=== PATIENT | female | born 1935 | race Caucasian/White ===

== ENCOUNTER 2017-06-20 15:18 | Emergency (ER) | payer OTHER, MEDICARE ==
--- NOTE | 2017-06-20 15:39 | PDOC ---
History of Present Illness - General History Source: Patient, Old Records Exam Limitations: No Limitations - History of Present Illness Initial Comments: 06/20/17 15:53 The patient is an 81 year old female accompanied by family, with a past medical history of CHF and pacemaker who presents to the emergency department today with back pain and belching for one day. The patient states that about 2 weeks ago she fell and landed on the right side of her body. Today, the patient states that her pain is mostly in her left middle back region and is associated with increased belching and some increased flatulence. The patient states that her pain is exacerbated when lying down but not on palpation. She denies fever, cough, vomiting, sweating, abdominal pain, epigastric pain. She reports mild weight loss. <Robert Perez - Last Filed: 06/20/17 20:50> <Tobi Torres - Last Filed: 06/21/17 01:49> <Mary Browning - Last Filed: 06/22/17 08:45> - General Chief Complaint: Back Pain Stated Complaint: BACK PAIN Time Seen by Provider: 06/20/17 15:20 Past History <Robert Perez - Last Filed: 06/20/17 20:50> <Tobi Torres - Last Filed: 06/21/17 01:49> <Mary Browning - Last Filed: 06/22/17 08:45> - Past Medical History Allergies/Adverse Reactions: Allergies Allergy/AdvReac Type Severity Reaction Status Date / Time Sulfa (Sulfonamide Allergy Unknown Verified 06/20/17 15:39 Antibiotics) Home Medications: Ambulatory Orders Atenolol [Tenormin] 25 mg PO HS 06/20/17 Atenolol [Tenormin] 50 mg PO DAILY 06/20/17 Atorvastatin Ca [Lipitor] 10 mg PO HS 06/20/17 Digoxin [Lanoxin -] 0.125 mg PO DAILY 06/20/17 Furosemide [Lasix] 20 mg PO BID 06/20/17 Losartan Potassium [Cozaar -] 50 mg PO HS 06/20/17 Tramadol HCl 50 mg PO TID #12 tablet MDD 150mg 06/20/17 Warfarin Na [Coumadin] 1 mg PO HS 06/20/17 Review of Systems - Review of Systems Able to Perform ROS?: Yes Comments:: 06/20/17 15:53 GENERAL/CONSTITUTIONAL: No fever or chills. No weakness. GASTROINTESTINAL: (+) Belching, Flatulence. No nausea, vomiting, diarrhea or constipation. GENITOURINARY: No dysuria, frequency, or change in urination. CARDIOVASCULAR: No chest pain or shortness of breath. MUSCULOSKELETAL: (+) Left mid back pain SKIN: No rash NEUROLOGIC: No headache, vertigo, loss of consciousness, or change in strength/ sensation. ENDOCRINE: (+) No increased thirst. Mild weight loss. HEMATOLOGIC/LYMPHATIC: No anemia, easy bleeding, or history of blood clots. <Robert Perez - Last Filed: 06/20/17 20:50> *Physical Exam - Vital Signs Last Vital Signs Temp Pulse Resp BP Pulse Ox 97.7 F 78 16 140/78 97 06/20/17 15:20 06/20/17 19:23 06/20/17 19:23 06/20/17 19:23 06/20/17 19:23 <Tobi Torres - Last Filed: 06/21/17 01:49> - Physical Exam Comments: GENERAL: Awake, alert, and fully oriented, in no acute distress. Intermittent belching. HEAD: No signs of trauma EYES: PERRLA, EOMI, sclera anicteric, conjunctiva clear ENT: Auricles normal inspection, hearing grossly normal, nares patent, oropharynx clear without exudates. Dry mucosa NECK: Normal ROM, supple, no lymphadenopathy, JVD, or masses LUNGS: Breath sounds equal, clear to auscultation bilaterally. No wheezes, and no crackles HEART: Regular rate and rhythm, normal S1 and S2, no murmurs, rubs or gallops ABDOMEN: Soft, nontender, normoactive bowel sounds. No guarding, no rebound. No masses. MSK: Normal range of motion, no edema. No clubbing or cyanosis. No cords, erythema, or tenderness. No CVAT, no rib tenderness. +Patch to L posterior ribs just inferior to the scapula. NEUROLOGICAL: Cranial nerves II through XII grossly intact. Normal speech, normal gait SKIN: Warm, Dry, normal turgor, no rashes or lesions noted. <Mary Browning - Last Filed: 06/22/17 08:45> Heart Score/ECG Review - ECG Impressions Comment:: EKG read 16:45- V-paced at 79 bpm <Mary Browning - Last Filed: 06/22/17 08:45> ED Treatment Course - LABORATORY CBC & Chemistry Diagram: 06/20/17 16:25 06/20/17 16:25 <Robert Perez - Last Filed: 06/20/17 20:50> - LABORATORY CBC & Chemistry Diagram: 06/20/17 16:25 06/20/17 16:25 - ADDITIONAL ORDERS Additional order review: Laboratory Results 06/20/17 06/20/17 06/20/17 16:25 16:25 16:25 Sodium 134 L Potassium 4.1 Chloride 99 Carbon Dioxide 29 H Anion Gap 6 L BUN 19 H Creatinine 1.0 Creat Clearance w eGFR 53.08 Random Glucose 113 H Calcium 8.9 Total Bilirubin 1.3 H AST 27 ALT 27 Alkaline Phosphatase 76 Creatine Kinase 66 Troponin I < 0.03 Total Protein 6.1 L Albumin 3.7 Lipase 687 H Urine Color Urine Appearance Urine pH Ur Specific [place] Urine Protein Urine Glucose (UA) Urine Ketones Urine Blood Urine Nitrite Urine Bilirubin Urine Urobilinogen Ur Leukocyte Esterase 06/20/17 15:50 Sodium Potassium Chloride Carbon Dioxide Anion Gap BUN Creatinine Creat Clearance w eGFR Random Glucose Calcium Total Bilirubin AST ALT Alkaline Phosphatase Creatine Kinase Troponin I Total Protein Albumin Lipase Urine Color Yellow Urine Appearance Clear Urine pH 7.0 Ur Specific [place] 1.010 Urine Protein Negative Urine Glucose (UA) Negative Urine Ketones Negative Urine Blood Negative Urine Nitrite Negative Urine Bilirubin Negative Urine Urobilinogen 0.2 Ur Leukocyte Esterase Negative 06/20/17 16:25 RBC 4.60 MCV 84.9 MCHC 34.3 RDW 17.0 H MPV 8.7 Neutrophils % 69.1 Lymphocytes % 19.5 Monocytes % 8.6 Eosinophils % 2.0 Basophils % 0.8 - Medications Given in the ED: ED Medications Discontinued Medications Generic Name Dose Route Start Last Admin Trade Name Freq PRN Reason Stop Dose Admin Tramadol HCl 50 mg 06/20/17 15:40 06/20/17 15:58 Ultram - PO 06/20/17 15:41 50 mg ONCE ONE Administration <Tobi Torres - Last Filed: 06/21/17 01:49> - LABORATORY CBC & Chemistry Diagram: 06/20/17 16:25 03/11/18 16:25 <Mary Browning - Last Filed: 06/22/17 08:45> Medical Decision Making - Medical Decision Making [address] [place] [address] Phone: [phone] Fax: Email: Web: [email or web address] Patient Information: : 1935 Name: GEETA SNOW Sex: F Study Description: CT ABDOMEN AND PELVIS Modality: CT Location: [facility] Referring Physician: AMOS VASQUEZ Comments: Ramo Ogden MD wrote on Jun 20, 2017 at 08:43 PM: Referring Physician: AMOS VASQUEZ Patient Name: EDY CONNOR THIS IS A PRELIMINARY REPORT FROM [facility] EXAM: CT abdomen and pelvis with contrast IMAGES:442 DATE OF EXAM: 2017-06-20 18:36:28 REASON FOR EXAM: Rule out pancreatic mass COMPARISON: None Findings: Moderate right and small left pleural effusions. Atelectasis and scarring in lung bases. Small hiatal hernia. Cardiomegaly without significant pericardial effusion. Pancreas appears normal without inflammatory changes. No evidence for pancreatic mass. 1.7 cm splenic cyst. CONFIDENTIALITY NOTICE: This information is intended only for the use of the recipient(s) named above. If you are not the intended recipient, or a person responsible for delivering it to the intended recipient, you are hereby notified that any disclosure, copying, distribution or use of any of the information contained in or attached to this transmission is STRICTLY PROHIBITED. If you have received this transmission in error, please immediately notify [facility] and destroy the original transmission and its attachments without saving them in any manner [address] [place] [address] Phone: [phone] Fax: Email: Web: [email or web address] Patient Information: : 1935 Name: GEETA SNOW Sex: F Study Description: CT ABDOMEN AND PELVIS Modality: CT Location: [facility] Referring Physician: AMOS VASQUEZ Heterogeneous hepatic attenuation likely representing asymmetric steatosis. Cannot exclude other liver pathology. Cholecystectomy. Bilateral adrenal nodules measuring up to 1.5 cm on the right and 9 mm on the left. Small right renal cysts. Left renal cortical scarring. No renal or urinary calculi. No AAA. Mild retroperitoneal adenopathy. No evidence for diverticulitis, appendicitis, small bowel obstruction, free pelvic fluid, or free air. *Moderate endometrial thickening with calcifications, potentially from underlying mass. Superimposed calcified uterine fibroids. Grade 1 spondylolisthesis at L3-4. THIS DOCUMENT HAS BEEN ELECTRONICALLY SIGNED Ramo Ogden MD CONFIDENTIALITY NOTICE: This information is intended only for the use of the recipient(s) named above. If you are not the intended recipient, or a person responsible for delivering it to the intended recipient, you are hereby notified that any disclosure, copying, distribution or use of any of the information contained in or attached to this transmission is STRICTLY PROHIBITED. If you have received this transmission in error, please immediately notify [facility] and destroy the original transmission and its attachments without saving them in any manner [address] [place] [address] Phone: [phone] Fax: Email: Web: [email or web address] Patient Information: : 1935 Name: GEETA SNOW Sex: F Study Description: CT ABDOMEN AND PELVIS Modality: CT Location: [facility] Referring Physician: AMOS VASQUEZ 06/20/2017 20:44 EST M.D. Please call [facility] [phone]) with questions. Ramo Ogden MD Clinicians - Please contact [facility] with further questions at [phone]) Patients - Please contact your Ordering Provider with questions. CONFIDENTIALITY NOTICE: This information is intended only for the use of the recipient(s) named above. If you are not the intended recipient, or a person responsible for delivering it to the intended recipient, you are hereby notified that any disclosure, copying, distribution or use of any of the information contained in or attached to this transmission is STRICTLY PROHIBITED. If you have received this transmission in error, please immediately notify [facility] and destroy the original transmission and its attachments without saving them in any manner <Robert Perez - Last Filed: 06/20/17 20:50> - Medical Decision Making mild pancreatitis? tolerating PO in ED without pain CT results d/w pt, who will bring report to PCP analgesia for presumed MSK etiology of LBP 06/21/17 01:49 <Tobi Torres - Last Filed: 06/21/17 01:49> - Medical Decision Making 06/20/17 18:[address] Torres at shift change. Presented with belching, mid back pain. Lipase elevated, but not significantly high. Awaiting CT to further evaluate pancreatitis vs pancreatic mass. <Mary Browning - Last Filed: 06/22/17 08:45> *DC/Admit/Observation/Transfer - Attestations Scribe Attestion: 06/20/17 15:54 Documentation prepared by Robert Perez, acting as medical management trainer for Mary Browning MD. <Robert Perez - Last Filed: 06/20/17 20:50> - Discharge Dispostion Admit: No <Tobi Torres - Last Filed: 06/21/17 01:49> <Mary Browning - Last Filed: 06/22/17 08:45> Diagnosis at time of Disposition: Pancreatitis Qualifiers: Chronicity: acute Pancreatitis type: other Acute pancreatitis complication: unspecified Qualified Code(s): K85.80 - Other acute pancreatitis without necrosis or infection - Discharge Dispostion Disposition: HOME Condition at time of disposition: Good - Prescriptions Prescriptions: Tramadol HCl 50 mg PO TID #12 tablet MDD 150mg - Patient Instructions Printed Discharge Instructions: DI for Pancreatitis
[2017-06-20] MEDS ORDERED: traMADol HCL 50 MG TABLET PO ONE (15:40)
[2017-06-20 15:56] LABS: URINE APPEARANCE Clear; URINE BILIRUBIN Negative (NEGATIVE); URINE BLOOD Negative (NEGATIVE); URINE GLUCOSE (UA) Negative (NEGATIVE); URINE KETONE Negative (NEGATIVE); URINE LEUK ESTERASE Negative (NEGATIVE); URINE NITRITE Negative (NEGATIVE); URINE PROTEIN Negative (NEGATIVE); URINE UROBILINOGEN 0.2 (0.2-1.0)
[2017-06-20] MEDS ORDERED: traMADol HCL 50 MG TABLET ONE (15:56)
[2017-06-20 15:57] LABS: URINE COLOR YELLOW
[2017-06-20 15:59] VITALS: TEMP 97.7; BMI 20.2
[2017-06-20 16:36] LABS: BASO % 0.8 % (0-2.0); HEMATOCRIT 39.1 % (32.4-45.2); HEMOGLOBIN 13.4 GM/dl (10.7-15.3); LYMPH % 19.5 % (8-40); MCH 29.1 pg (25.7-33.7); MCHC 34.3 g/dl (32.0-36.0); MEAN CELL VOLUME 84.9 fl (80-96); MEAN PLT VOLUME 8.7 fl (7.5-11.1); MONO % 8.6 % (3.8-10.2); NEUT % 69.1 % (42.8-82.8); PLATELET COUNT 182 K/MM3 (134-434); WHITE BLOOD COUNT 8.9 K/mm3 (4.0-10.8)
[2017-06-20 17:07] LABS: ALBUMIN 3.7 g/dl (3.5-5.0); ALK PHOS 76 U/L (32-92); ANION GAP 6 (8-16); BILIRUBIN,TOTAL 1.3 mg/dl (0.2-1.0); BLOOD UREA NITROGEN 19 mg/dl (7-18); CALCIUM 8.9 mg/dl (8.4-10.2); CHLORIDE 99 mmol/L (98-107); CO2 29 mmol/L (22-28); GLUCOSE,RANDOM 113 mg/dl (74-106); POTASSIUM 4.1 mmol/L (3.5-5.1); SGOT/AST 27 U/L (10-42); SGPT/ALT 27 U/L (10-40); SODIUM 134 mmol/L (136-145); TOT PROT 6.1 g/dl (6.4-8.3)
[2017-06-20 17:22] LABS: LIPASE 687 U/L (73-393)
[2017-06-20 19:26] VITALS: BP 140/78; PULSE 78
--- NOTE | 2017-06-21 15:43 | EKG ---
Test Reason : Blood Pressure : / mmHG Vent. Rate : 079 BPM Atrial Rate : 078 BPM P-R Int : 000 ms QRS Dur : 164 ms QT Int : 442 ms P-R-T Axes : 000 -77 100 degrees QTc Int : 506 ms Ventricular-paced rhythm ABNORMAL ECG NO PREVIOUS ECGS AVAILABLE Confirmed by KRISTAL GARCIA MD ([id number]) on 06/21/2017 3:43:18 PM Referred By: Azul TRINIDAD Confirmed By:KRISTAL GARCIA MD
== END 2017-06-20 21:45 | disposition home or self-care (01) ==
LOC: FER 15:18
DX: K85.80 Other acute pancreatitis without necrosis or infection (principal); I50.9 Heart failure, unspecified; Z95.0 Presence of cardiac pacemaker
CPT/HCPCS: 36415; 71046-TC-FY; 71101-TC-FY; 74177-TC; 80053; 81003; 82550; 83690; 84484; 85025; 87086; 93005; 99284-25